=== PATIENT | female | born 1990 | race American Indian/Alaskan Native ===

== ENCOUNTER 2020-12-31 22:04 | Emergency (ER) | payer MEDICAID ==
[2020-12-31 23:05] VITALS: BP 127/86
[2020-12-31 23:49] LABS: Bacteria,Urine 1+ /HPF (Negative); Bilirubin,Urine NEG (Negative); Blood,Urine NEG (Negative); Color,Urine Yellow (Yellow); Mucus,Urine 3+ /HPF; Protein,Urine <15 mg/dL mg/dL (Negative)
[2020-12-31 23:51] LABS: HCG Qualitative,Urine Negative (Negative)
--- NOTE | 2021-01-01 01:20 | Emergency Department Report ---
ED Female HPI - General Chief complaint: Urogenital-Female Stated complaint: VAGINAL PAIN/CRAMPING DISCHARGE Time Seen by Provider: 12/31/20 23:37 Source: patient Mode of arrival: Ambulatory Limitations: No Limitations - History of Present Illness Initial comments: 30-year-old [place] female is admitted from [facility] to 3-day history of pelvic cramping associated with a watery clear malodorous vaginal discharge with a suspicion bacterial infection management department evaluation treatment options. She does also evaluate the patient due to pruritus in the area. Ports no vaginal bleeding, no concern for no fever, chills, sweats, no nausea no vomiting no flank pain. No trauma. -: Gradual Location: suprapubic Radiation: non-radiating Quality: burning Consistency: constant Improves with: none Are you Now?: No Associated Symptoms: vaginal discharge - Related Data Sexually active: No Allergies Allergy/AdvReac Type Severity Reaction Status Date / Time sulfamethoxazole Allergy Hives Verified 12/31/20 23:32 [From Bactrim] trimethoprim [From Bactrim] Allergy Hives Verified 12/31/20 23:32 ED Review of Systems ROS: Stated complaint: VAGINAL PAIN/CRAMPING DISCHARGE Other details as noted in HPI Comment: All other systems reviewed and negative ED Past Medical Hx - Past Medical History Hx Diabetes: Yes (DM 2) Hx Headaches / Migraines: Yes Additional medical history: HLD - Surgical History Past Surgical History?: No ED Physical Exam - General Limitations: No Limitations General appearance: alert, in no apparent distress - Head Head exam: Present: atraumatic, normocephalic - Eye Eye exam: Present: normal appearance - ENT ENT exam: Present: normal exam, mucous membranes moist - Neck Neck exam: Present: normal inspection, full ROM - Respiratory Respiratory exam: Present: normal lung sounds bilaterally. Absent: respiratory distress, wheezes - Cardiovascular Cardiovascular Exam: Present: regular rate, normal rhythm. Absent: systolic murmur, diastolic murmur, rubs, gallop - GI/Abdominal GI/Abdominal exam: Present: soft, normal bowel sounds - Extremities Exam Extremities exam: Present: normal inspection - Back Exam Back exam: Present: normal inspection - Neurological Exam Neurological exam: Present: alert, oriented X3 - Psychiatric Psychiatric exam: Present: normal affect, normal mood - Skin Skin exam: Present: warm, dry, intact, normal color. Absent: rash ED Course Vital Signs 12/31/20 23:03 Temperature 97.8 F Pulse Rate 84 Respiratory 16 Rate Blood Pressure 127/86 O2 Sat by Pulse 99 Oximetry ED Medical Decision Making - Medical Decision Making 30-year-old F Japanese female Curt emerge department planing of a 2-day history of vaginal discomfort with some watery discharge suspicious of a bacterial infection urinalysis is clear as well is her wet prep. Abdomen no indications for any treatment at present. Will advise patient to move forward with an STD panel as local health department Critical care attestation.: If time is entered above; I have spent that time in minutes in the direct care of this critically ill patient, excluding procedure time. ED Disposition Clinical Impression: Pelvic pain Disposition: HOME / SELF CARE / HOMELESS Is pt being admited?: No Does the pt Need Aspirin: No Condition: Stable Instructions: Pelvic Pain, Female Additional Instructions: Seen emergency department today for pelvic pain with some vaginal irritation and brown discharge with may have been related to the cessation of your cycle. Wet prep was clear showing no signs of any infectious process. It is recommended you follow-up with your [facility]ST for further testing or the local health department Referrals: [facility] [Primary Care Provider] - 3-5 Days [facility] [Provider Group] - 3-5 Days [facility] [Outside] - 3-5 Days
== END 2021-01-01 03:13 | disposition home or self-care (01) ==
LOC: ED 22:04
DX: R10.2 Pelvic and perineal pain (principal); E11.8 Type 2 diabetes mellitus with unspecified complications; G43.909 Migraine, unspecified, not intractable, without status migrainosus; Z88.1 Allergy status to other antibiotic agents
CPT/HCPCS: 81001; 81025; 87210; 99283